=== PATIENT | male | born 1960 | race Caucasian/White ===

== ENCOUNTER 2022-02-05 12:57 | Observation (INO) ==
[2022-02-05] MEDS ORDERED: ASPIRIN 325 MG TABLET PO STA (13:42)
[2022-02-05] MEDS ORDERED: NITROGLYCERIN SL 0.4 MG TABLET SL PRN (13:42)
[2022-02-05 13:59] LABS: Basophils % 0.7 % (0.0-0.8); Eosinophils # 0.1 10*3/uL (0.0-0.87); Eosinophils % 3.1 % (0.00-10.9); Hematocrit 40.1 VOL% (42.0-52.0); Hemoglobin 13.7 GM/DL (14.0-18.0); Immature Granulocytes % 0.5 %; Immature Granulocytes Absolute 0.02 #; Lymphocytes # 1.3 10*3/uL (1.4-4.0); Lymphocytes % 31.9 % (21.2-54.2); Mean Corpuscular HGB Conc 34.2 GM/DL (32-36); Mean Corpuscular Volume 90.9 FL (87-102); Mean Platelet Volume 10.2 FL (9.6-12.0); Monocytes # 0.4 10*3/uL (0.11-0.8); Monocytes % 10.1 % (1.7-12.7); Neutrophils % 53.7 % (38.7-73.9); Platelet Count 223 T/CUMM (130-400); Red Blood Count 4.41 MC/CUMM (3.8-5.5); Red Cell Distribution Width 11.9 % (9.3-17.3); White Blood Count 4.2 T/CUMM (4-12)
[2022-02-05 14:26] LABS: Alanine Aminotransferase 26 U/L (16-61); Albumin 3.7 G/DL (3.4-5.0); Alkaline Phosphatase 103 U/L (45-117); Aspartate Amino Transferase 24 U/L (0-37); Bilirubin,Total < 0.39 MG/DL (0.20-1.00); Blood Urea Nitrogen 18 MG/DL (7-18); Calcium 9.6 MG/DL (8.5-10.1); Carbon Dioxide 25 MMOL/L (21-32); Chloride 109 MMOL/L (98-107); Glucose 81 MG/DL (74-106); Osmolality,Calculated 281.3 MOS/KG (273-304); Sodium 141 MMOL/L (136-145); Total Protein 6.6 G/DL (6.4-8.2)
[2022-02-05] MEDS ORDERED: ONDANSETRON 4 MG/2 ML VIAL IV PRN (14:58)
[2022-02-05] MEDS ORDERED: ACETAMINOPHEN 325 MG TABLET PO PRN (14:58)
[2022-02-05] MEDS: DOCUSATE SODIUM 100 MG CAPSULE PO SCH (20:25)
[2022-02-06] MEDS ORDERED: ASPIRIN 325 MG TABLET PO SCH (09:00)
[2022-02-06] MEDS ORDERED: PANTOPRAZOLE 40 MG TABLET PO SCH (09:00)
[2022-02-06] MEDS: DOCUSATE SODIUM 100 MG CAPSULE PO SCH (09:19)
[2022-02-06 14:23] VITALS: BP 108/65
== END 2022-02-06 15:15 | disposition home or self-care (01) ==
LOC: EDUNIT# → EDBD → N.ED 12:57 → N.EDINP 12:57 → N.TELEN 16:16
PROVIDERS: ADMIT Family Medicine; ATTEND Family Medicine